=== PATIENT | male | born 1940 | race Caucasian/White ===

== ENCOUNTER 2017-05-16 11:15 | Emergency (ER) | payer MEDICARE ==
[2017-05-16] MEDS ORDERED: NS 0.9% 1000 ML* 1,000 ML IV ONE (11:25)
[2017-05-16 11:53] LABS: ABS Basophils 0.1 10^3/ul (0-0.2); ABS Eosinophils 0 10^3/ul (0-0.6); ABS Monocytes 1.4 10^3/ul (0-0.8); ABS Neutrophils 15.2 10^3/ul (1.5-7.7); ABS Nucleated RBC 0 10^3/ul; Eosinophil % 0 % (0-6); Hematocrit 45 % (42-52); Lymphocyte % 5.7 % (25-47); Mean Corpuscular HGB Conc 33 g/dl (31-36); Mean Corpuscular Hemoglobin 29 pg (27-31); Mean Corpuscular Volume 86 fL (80-94); Mean Platelet Volume 9 um3 (7.4-10.4); Nucleated Red Blood Cells % 0; Platelet Count 185 10^3/ul (150-450); Red Blood Count 5.25 10^6/ul (4.0-5.4); Red Cell Distribution Width 15 % (10.5-15); White Blood Count 17.7 10^3/ul (3.5-10.8)
[2017-05-16 12:10] LABS: EGFR Non-African American 93.2 (>60)
[2017-05-16] MEDS ORDERED: Potassium Chlor TAB* 20 MEQ TAB.ER PO ONE (12:10)
[2017-05-16] MEDS ORDERED: Morphine INJ* 4 MG/ML 1 ML CARPUJECT IV ONE (12:46)
--- NOTE | 2017-05-16 13:07 | RAD ---
INDICATION: Weakness and right arm cellulitis COMPARISON: With recent comparison chest x-rays dated May 09, 2014 TECHNIQUE: PA and lateral views of the chest were obtained. FINDINGS: The heart and mediastinum are normal in size and contour. The lungs are grossly clear. There is no evidence of large pleural effusion. Visualized bones are normal for the patient's age. There is no radiographic evidence of free air beneath the diaphragm IMPRESSION: No radiographic evidence of acute cardiopulmonary disease.
[2017-05-16] MEDS ORDERED: Sulfamethox/Trimethoprim DS 800/160* TAB PO ONE (13:44)
[2017-05-16] MEDS ORDERED: cefTRIAXone(*) 1 GM in NS 0.9% 50 ML* 50 ML IVPB ONE (13:46)
[2017-05-16 15:01] VITALS: BP 149/73
--- NOTE | 2017-05-16 17:59 | ED ---
Yasmany Cannon Angela, scribed for Dakota Grace MD on 05/16/17 at 1127 . Neurological HPI - HPI Summary HPI Summary: This pt is a 76 y/o male presenting to [facility] via EMS c/o generalized weakness. EMS reports the pt was last seen his normal self 3 days ago. Today pt is too weak to get around his house. Pt additionally notes right arm pain and warmth. He denies chest pain, SOB, headache, dizziness. PMHx: NH, RBBB. Pt's PCP is Dr. Ornelas. Pt has chronic pain and is on morphine. - History of Current Complaint Stated Complaint: WEAKNESS Time Seen by Provider: 05/16/17 11:19 Hx Obtained From: EMS Onset/Duration: Started days ago, Still Present Timing: Constant Current Severity: Worse Since: - yesterday Neurological Deficit Location: Generalized Character: Weak - generalized Aggravating: Nothing Alleviating: Nothing Associated Signs and Symptoms: Positive: Weakness - generalized. Negative: Headache, Memory Loss, Loss of Consciousness - Allergy/Home Medications Allergies/Adverse Reactions: Allergies Allergy/AdvReac Type Severity Reaction Status Date / Time No Known Allergies Allergy Verified 10/11/15 18:57 Home Medications: Home Medications Aspirin EC TAB* [Ecotrin EC TAB*] 325 mg PO DAILY 05/16/17 [History Confirmed ] Fenofibrate [Lofibra] 54 mg PO BID 05/16/17 [History Confirmed 05/16/17] Morphine TAB Extended Rel(*) [Ms Contin(*)] 30 mg PO BID 05/16/17 [History Confirmed 05/16/17] Sertraline* [Zoloft*] 50 mg PO QPM 05/16/17 [History Confirmed 05/16/17] Sertraline* [Zoloft*] 100 mg PO QAM 05/16/17 [History Confirmed 05/16/17] celeCOXIB CAP* [CeleBREX CAP*] 200 mg PO DAILY 05/16/17 [History Confirmed 05/16] traMADol TAB* [Ultram*] 50 mg PO TID PRN 05/16/17 [History Confirmed 05/16/17] PMH/Surg Hx/FS Hx/Imm Hx Cardiovascular History: Reports: Hx Hypercholesterolemia, Hx Hypertension, Hx Myocardial Infarction Musculoskeletal History: Reports: Other Musculoskeletal History - Chronic bilateral knee pain Psychiatric History: Reports: Hx Depression - Family History Known Family History: Positive: Unknown - pt is adopted - Social History Alcohol Use: None Hx Substance Use: Yes Substance Use Type: Reports: Prescribed Substance Use Comment - Amount & Last Used: morphine IR 15mg and morphine 30mg po. Hx Tobacco Use: No Smoking Status (MU): Never Smoked Tobacco Review of Systems Negative: Fever, Chills Negative: Chest Pain Negative: Shortness Of Breath Musculoskeletal: Other - right arm pain Skin: Other - right arm warmth Neurological: Other - NEG: dizziness Positive: Weakness - generalized. Negative: Headache All Other Systems Reviewed And Are Negative: Yes Physical Exam - Summary Physical Exam Summary: VITAL SIGNS: Reviewed. GENERAL: Patient is an elderly and fragile male who is lying comfortable in the stretcher. Patient is not in any acute distress. HEAD AND FACE: No signs of trauma. No ecchymosis, hematomas or skull depressions. No sinus tenderness. EYES: PERRLA, EOMI x 2, No injected conjunctiva, no nystagmus. No photophobia. EARS: Hearing grossly intact. Ear canals and tympanic membranes are within normal limits. MOUTH: Oropharynx within normal limits. NECK: Supple, trachea is midline, no adenopathy, no JVD, no carotid bruit, no c- spine tenderness, neck with full ROM. No meningeal signs, no Kernig's or brudzinskis signs. CHEST: Symmetric, no tenderness at palpation LUNGS: Clear to auscultation bilaterally. No wheezing or crackles. CVS: Regular rate and rhythm, S1 and S2 present, no murmurs or gallops appreciated. ABDOMEN: Soft, non-tender. No signs of distention. No rebound no guarding, and no masses palpated. Bowel sounds are normal. EXTREMITIES: FROM in all major joints, no cyanosis or clubbing. RUE: erythema around right elbow and right forearm, consistent with cellulitis. NEURO: Alert and oriented x 3. No acute neurological deficits. Speech is normal and follows commands. SKIN: Dry and warm GCS: 15 Triage Information Reviewed: Yes Vital Signs On Initial Exam: Initial Vitals BP 112/71 05/16/17 11:24 Temperature: 98.3 F Pulse rate: 95 Respiratory rate: 24 O2 saturation: 92 Vital Signs Reviewed: Yes Diagnostics - Laboratory Result Diagrams: 05/16/17 11:45 05/16/17 11:45 Lab Statement: Any lab studies that have been ordered have been reviewed, and results considered in the medical decision making process. - Radiology Chest XR Xray Interpretation: No Acute Changes - IMPRESSION: No radiographic evidence of acute cardiopulmonary disease. Dr. Grace has reviewed this radiology report. Radiology Interpretation Completed By: Radiologist - EKG 11:35 Cardiac Rate: NL EKG Rhythm: Sinus Rhythm - at 95 bpm EKG Interpretation: No ST elevation. Q wave in II,III and aVF. T wave inversion in V4-V6. Course/Dx - Course Course Of Treatment: This pt is a 76 y/o male presenting to [facility] via EMS c/o generalized weakness. EMS reports the pt was last seen his normal self 3 days ago. Today pt is too weak to get around his house. Pt additionally notes right arm pain and warmth. He denies chest pain, SOB, headache, dizziness. PMHx: NH, RBBB. Pt's PCP is Dr. Ornelas. Pt has chronic pain and is on morphine. Test results show WBC of 17.7, potassium of 3.2, CRP of 264, BNP of 183. Chest XR shows no radiographic evidence of acute cardiopulmonary disease. I believe the pts symptoms are secondary to cellulitis in his right upper extremity. The pt was given Rocephin and Bactrim. He will be discharged to home with a prescription of Bactrim. We marked the edges of the erythema on his RUE and he was instructed to return to the ED if the erythema surpasses the rivera. Pt understands and agrees. - Diagnoses Provider Diagnoses: Cellulitis of right upper extremity Discharge - Discharge Plan Condition: Stable Disposition: HOME Prescriptions: Sulfamethox/Trimethoprim DS* [Bactrim DS 800/160 TAB*] 1 tab PO BID #20 tab Patient Education Materials: Cellulitis (ED) Referrals: Ramon Ornelas MD [Primary Care Provider] - 1 Week Additional Instructions: Please follow up with your primary care provider. RETURN TO THE ED FOR ANY WORSENING SYMPTOMS. The documentation as recorded by the Yasmany yuan Angela accurately reflects the service I personally performed and the decisions made by , Dakota Grace MD.
== END 2017-05-16 15:00 | disposition home or self-care (01) ==
LOC: ED 11:15
DX: L03.113 Cellulitis of right upper limb (principal); R53.1 Weakness
CPT/HCPCS: 36415; 71046; 80053; 80320; 82550; 83735; 83880; 84443; 84484; 85025; 86140; 93005; 96361; 96365; 96375; 99284; A9270-GY; G0480; J0696; J2270